=== PATIENT | female | born 1945 | race Caucasian/White ===

== ENCOUNTER 2018-04-20 19:40 | Emergency (ER) | payer MEDICARE, OTHER ==
[~2018-04-20] VITALS: Ht 162.6 cm; Wt 115.7 kg
[2018-04-20] MEDS ORDERED: INVOKANA300 MG PO (19:54)
[2018-04-20] MEDS ORDERED: PLAVIX 75 MG TA75 M1 PO (19:54)
[2018-04-20] MEDS ORDERED: ISOSORBIDE MONO60 M1 PO (19:55)
[2018-04-20] MEDS ORDERED: COZAAR 25 MG TA25 M1 PO (19:55)
[2018-04-20] MEDS ORDERED: CARVEDILOL12.5 MG PO (19:55)
[2018-04-20] MEDS ORDERED: ZETIA10 MG PO (19:55)
[2018-04-20] MEDS ORDERED: ASPIR 8181 MG PO (19:56)
[2018-04-20] MEDS ORDERED: LUMIGAN2.5 M1 OP (19:56)
[2018-04-20] MEDS ORDERED: NOVOLOG100 UNIT/1 SUBQ (19:56)
[2018-04-20] MEDS ORDERED: LANTUS100 UNIT/M SUBQ (19:56)
[2018-04-20] MEDS ORDERED: PROTONIX40 M1 PO (19:56)
[2018-04-20] MEDS ORDERED: FISH OIL 1,001000 M2 PO (19:57)
[2018-04-20] MEDS ORDERED: FEMARA2.5 MG PO (19:57)
[2018-04-20] MEDS ORDERED: VITAMIN D5000 UNIT PO (19:57)
[2018-04-20] MEDS ORDERED: CENTRUM SILVER1 EAC4 PO (19:57)
[2018-04-20] MEDS ORDERED: METFORMIN HCL1000 M1 PO (19:58)
[2018-04-20] MEDS ORDERED: COMBIGAN EYE DR10 ML (19:58)
[2018-04-20] MEDS ORDERED: BYDUREON P2 MG/0.65 (19:59)
[2018-04-20] MEDS ORDERED: HYDROCODONE-AP1 EAC6 PO (22:09)
[2018-04-20 22:30] VITALS: BP 179/90
== END 2018-04-20 22:30 | disposition home or self-care (01) ==
LOC: M.ERS 19:40
DX: S59.292A Other physeal fracture of lower end of radius, left arm, initial encounter for closed fracture (principal); S52.612A Displaced fracture of left ulna styloid process, initial encounter for closed fracture; E11.9 Type 2 diabetes mellitus without complications; I10 Essential (primary) hypertension; E78.00 Pure hypercholesterolemia, unspecified; Z90.710 Acquired absence of both cervix and uterus; Z90.11 Acquired absence of right breast and nipple; Z85.3 Personal history of malignant neoplasm of breast; Z79.4 Long term (current) use of insulin; W00.0XXA Fall on same level due to ice and snow, initial encounter; Y92.89 Other specified places as the place of occurrence of the external cause; Y93.89 Activity, other specified; Y99.8 Other external cause status

== ENCOUNTER 2018-06-18 14:58 | Inpatient (IN) | payer MEDICARE, OTHER ==
[~2018-06-18] VITALS: Ht 162.6 cm; Wt 110.2 kg
[~2018-06-18 14:58] MED LIST: ASPIR 8181 MG PO; BYDUREON P2 MG/0.65; CARVEDILOL12.5 MG PO; CENTRUM SILVER1 EAC4 PO; COMBIGAN EYE DR10 ML; COZAAR 25 MG TA25 M1 PO; FEMARA2.5 MG PO; FISH OIL 1,001000 M2 PO; HYDROCODONE-AP1 EAC6 PO; INVOKANA300 MG PO; ISOSORBIDE MONO60 M1 PO; LANTUS100 UNIT/M SUBQ; LUMIGAN2.5 M1 OP; METFORMIN HCL1000 M1 PO; NOVOLOG100 UNIT/1 SUBQ; PLAVIX 75 MG TA75 M1 PO; PROTONIX40 M1 PO; VITAMIN D5000 UNIT PO; ZETIA10 MG PO
[2018-06-18 15:08] VITALS: BP 118/84
[2018-06-18 15:33] LABS: ABSOLUTE BASOPHILS 0.1 thou/uL (0.0-0.2); ABSOLUTE EOSINOPHILS 0.1 thou/uL (0.0-0.7); ABSOLUTE LYMPHOCYTES 2.6 thou/uL (0.8-5.3); ABSOLUTE MONOCYTES 1.3 thou/uL (0.0-1.2); ABSOLUTE NEUTROPHILS 11.6 thou/uL (1.6-8.1); BASOPHILS 0.8 %; EOSINOPHILS 0.6 %; HEMATOCRIT 31.1 % (37.0-47.0); HEMOGLOBIN 10.1 gm/dL (12.0-15.0); LYMPHOCYTES 16.7 %; MCH 24.8 pg (26.0-34.0); MCHC 32.5 g/dL (28.0-37.0); MCV 76.3 fL (80.0-100.0); MONOCYTES 8.4 %; MPV 7.9 fl. (7.2-11.1); NUCLEATED RBCS 0 /100WBC; PLATELET COUNT* 365 thou/uL (150-400); POLYS 73.5 %; RBC 4.07 mil/uL (4.20-5.00); RDW-CV 15.5 % (10.5-14.5); WBC 15.8 thou/uL (4.0-11.0)
[2018-06-18 15:55] LABS: APTT 26.3 Seconds (25.0-31.3); INR 1.1; PROTIME 11.3 Seconds (9.20-11.50)
[2018-06-18 15:56] LABS: CALCIUM 8.7 mg/dL (8.5-10.1); CREATININE 2.5 mg/dL (0.6-1.3); POTASSIUM 4.9 mmol/L (3.5-5.1); TROPONIN-I LEVEL 0.11 ng/mL (<0.06)
[2018-06-18 16:00] VITALS: BP 78/21
[2018-06-18 16:03] LABS: ALBUMIN 2.5 g/dL (3.4-5.0); CK-MB MASS 0.8 ng/mL (<0.5-3.6); MAGNESIUM 2.2 mg/dL (1.8-2.4); TOTAL BILIRUBIN 1.2 mg/dL (<0.1-1.0); TOTAL PROTEIN 6.4 g/dL (6.4-8.2)
--- NOTE | 2018-06-18 17:26 | CARD ---
[address] [address] CARDIAC CATH REPORT Name: JD MACDONALD Room: [address] IN [facility]#: [id number] Admission: 06/18/18 Attend Phys: Jake Gutiérrez MD Discharge: Date of : 49 Report #: [id number] THIS REPORT FOR: //name// APPROVED REPORT Study performed: 06/18/2018 15:35:28 Patient Details Patient Status: ED Room #: The patient is a 72 year-old female Event Personnel Yasir Espinoza Teacher Adult Education, Barbara Lee RN Ware Carrier, Berta Heller RN Monitor, Alfred House (R) Scrub Procedures Performed Storm Access - R femoral vein Temporary Pacemaker Inserted Indication Abnormal ECG, Dizziness and vertigo, Syncope Risk Factors Coronary Artery DiseaseHypertension Previous Procedures/Diagnoses Previous CABG, Previous Valve Surgery Procedure Narrative The patient was brought emergently to the Cardiac Catheterization Laboratory and was prepped and draped in a sterile manner. The right femoral was infiltrated with 2% Lidocaine subcutaneous anesthesia. A 6 sheath was inserted into the right femoral vein. Coronary angiography was performed using coronary diagnostic catheters. The patient tolerated the procedure well and there were no complications associated with the procedure. There was no hematoma. Temporary Pacemaker lead inserted and Patient paced at 80 bpm at 5 mA. Patient tolerated procedure well. Fluoro Time: 1.4 minutes Dose: 105 mGy Contrast Type and Amount: No Contrast Given 0 [place] [address] CARDIAC CATH REPORT Name: JD MACDONALD Room: [address] IN [facility]#: [id number] Admission: 06/18/18 Attend Phys: Jake Gutiérrez MD Discharge: Date of : 49 Report #: [id number] 1. successful placement of a temporary pacing lead throught the right femoral vein. Recommendations permanent pacemaker <ELECTRONICALLY SIGNED> By: Yasir Espinoza MD, FACC 06/18/18 1726 [id number] Espinoza MD, FACC /INF
[2018-06-18 18:00] VITALS: BP 115/55
[2018-06-18 19:00] VITALS: BP 123/61
[2018-06-18 21:00] VITALS: BP 113/59
[2018-06-18 23:00] VITALS: BP 134/59
[2018-06-19] VITALS (11 sets, daily range): BP systolic 99–178; BP diastolic 56–109
[2018-06-19 05:26] LABS: CALCIUM 8.4 mg/dL (8.5-10.1); CREATININE 1.8 mg/dL (0.6-1.3)
[2018-06-19 05:36] LABS: POTASSIUM 3.9 mmol/L (3.5-5.1)
[2018-06-19 09:20] LABS: URINE BILIRUBIN NEGATIVE (Negative); URINE BLOOD TRACE (Negative); URINE CLARITY CLEAR; URINE COLOR YELLOW; URINE GLUCOSE-RANDOM 3+ (Negative); URINE KETONES NEGATIVE (Negative); URINE LEUKOCYTES-REFLEX NEGATIVE (Negative); URINE NITRITE-REFLEX NEGATIVE (Negative); URINE PROTEIN NEGATIVE (Negative); URINE SPECIFIC GRAVITY 1.025 (1.005-1.030); URINE UROBILINOGEN 0.2 E.U./dl (0.2-1.0)
--- NOTE | 2018-06-19 13:34 | EKG ---
[place] [address] ELECTROCARDIOGRAM REPORT Name: JD MACDONALD Room: [address] ADM IN [facility]#: [id number] Admission: 06/18/18 Attend Phys: Jake Gutiérrez MD Discharge: Date of : 49 Report #: [id number] THIS REPORT FOR: //name// [facility] ED Test Date: 2018-06-18 Test Time: 15:02:58 Pat Name: JD MACDONALD Department: Room: [facility] Gender: F Risk Management Director: MS : 1945 Requested By: Kike Luong Order Number: [id number] MD: Yasir Espinoza Measurements Intervals [place] Rate: 26 P: 23 [place]: QRS: 123 QRSD: 164 T: 18 QT: 682 QTc: 449 Interpretive Statements Complete AV block with wide QRS complex RBBB and LPFB Baseline wander in lead(s) V2 No previous ECG available for comparison Electronically Signed On 06-19-2018 13:34:03 CDT by Yasir Espinoza [email or web address] <ELECTRONICALLY SIGNED> By: Yasir Espinoza MD, [facility] 06/19/18 1334 1502 1502 Yasir Espinoza MD, [facility] /EPI
--- NOTE | 2018-06-19 17:27 | CON ---
[address] [address] CONSULTATION Name: JD MACDONALD Room: [address] ADM IN [facility].#: [id number] Admission: 06/18/18 Attend Phys: Jake Gutiérrez MD Discharge: Date of : 49 Report #: [id number] THIS REPORT FOR: //name// CC: Eunice Gutiérrez DATE OF SERVICE: 06/18/2018 CARDIOLOGY CONSULTATION HISTORY OF PRESENT ILLNESS: The patient is a 72-year-old white female who I was asked to see in the Emergency Room today after she had evidence of complete heart block. The history is obtained from the patient as well as her . No old records available. The patient has an extensive past medical history. She has had several stents in the past at both [facility] and [facility]. She apparently had a total of 5 stents in the past. She has a long history of a heart murmur. Recently, she has been more short of breath. She eventually underwent 2-vessel bypass surgery and aortic valve replacement using tissue valve at [facility] a week ago. She apparently tolerated the surgery well. She was just discharged yesterday. Last night about 11:30 at night, she felt lightheaded and fell off the bed on the floor. She had a brief loss of consciousness. Today, she felt weak, short of breath and nauseated. She called an ambulance. She was noted to be in complete heart block. Cardiology consultation requested. She denies a history of an irregular heartbeat. PAST MEDICAL HISTORY: She has had a hysterectomy. She has a history of breast cancer with previous right lumpectomy followed by radiation therapy. She has hypertension and diabetes. MEDICATIONS: Consist of Invokana, losartan, carvedilol, Zetia, insulin, aspirin, metformin. ALLERGIES: She has no known drug allergies. FAMILY HISTORY: Her sister had coronary artery bypass surgery. SOCIAL HISTORY: She is . She and her live in [place]. No smoking or alcohol abuse. REVIEW OF SYSTEMS: She is overweight, being 5 feet 4 inches, 260 pounds. She has no history of stroke, no history of peptic ulcer disease, liver disease, kidney disease. She fell and broke her hand last year and has a splint in place. She has sleep apnea, uses CPAP. She has had skin [place] [address] CONSULTATION Name: JD MACDONALD Room: [address]#: [id number] Admission: 06/18/18 Attend Phys: Jake Gutiérrez MD Discharge: Date of : 49 Report #: [id number] PHYSICAL EXAMINATION: GENERAL: Revealed a large, elderly female lying in bed. She appeared in no acute distress. VITAL SIGNS: Show blood pressure 120/80, pulse 30, she is afebrile. HEENT: She was anicteric, conjunctivae pink. Mucous membranes moist. NECK: Veins were difficult to assess due to obesity. No carotid bruits. CHEST: Clear to auscultation. CARDIAC: Irregular bradycardia. ABDOMEN: Obese. EXTREMITIES: Had trace edema. SKIN: Cool and dry. IMAGING: ECG shows a sinus rhythm with AV dissociation due to complete heart block with a wide QRS escape rhythm. Her workup in the Emergency Room today, she had a portable chest x-ray that shows normal heart size, clear lung barnhart, some atelectasis. LABORATORY WORK: Significant for white blood cell count 15.8, hemoglobin 10.1. IMPRESSION AND RECOMMENDATIONS: 1. Complete heart block. I would discontinue Coreg. Check thyroid function studies. Recommend temporary pacemaker. If complete heart block persists, I would recommend permanent pacemaker. 2. Recent coronary artery bypass surgery. I would continue aspirin a day. 3. Recent aortic valve replacement using tissue valve. Valve appears to be functioning normally. 4. Morbid obesity. 5. Diabetes. 6. Hypertension. The patient is on an ARB and beta-pineda. 7. Hyperlipidemia. The patient is on Zetia. 8. Sleep apnea. The patient uses continuous positive airway pressure. 9. Breast cancer. <ELECTRONICALLY SIGNED> By: Yasir Espinoza MD, FACC 06/19/18 1727 1550 0437Davialbert Espinoza MD, FACC /nt
--- NOTE | 2018-06-19 18:08 | CARD ---
[address] [address] CARDIAC CATH REPORT Name: TORRESJD Alvaro Room: [address] IN [facility]#: [id number] Admission: 06/18/18 Attend Phys: Jkae Gutiérrez MD Discharge: Date of : 49 Report #: [id number] THIS REPORT FOR: //name// APPROVED REPORT Study performed: 06/19/2018 13:29:34 Patient Status: In-Patient Room #: Event Personnel: Yasir Espinoza Steam And Power Superintendent, Berta Heller RN Pneumatic Tube Operator, Alfred House (R) Monitor, Jake Chávez TRANSPORTATION DISPATCH MANAGER Scrub Exam: Insertion of Dual Chamber Permanent Pacemaker Indications: Complete Heart Block The patient is a 72 year-old female with a history of syncope and complete heart block. Conscious Sedation Start time: 14:29 End Time: 16:44 Fentanyl 50 mcg Versed 2 mg Implanted Devices: permanent dual chamber mri compatible biotronic pacemaker Explanted Devices: temporary pacing lead from the right femoral vein Procedure The patient underwent informed consent. We discussed the details of the procedure including the risks, which include, but not limited to bleeding, infection, vascular damage, cardiac perforation, and pneumothorax. She understood these risks and was willing to proceed. As such, she was brought to the EP/Cardiac Catheterization laboratory in a fasting and sedated state and prepped and draped in a sterile fashion, received IV antibiotics prior to initiation of the procedure and a venogram was performed showing patency of the left axillary vein. The patient underwent conscious sedation, with no related complications. The patient was brought to the EP/Cardiac Catheterization laboratory and the left chest and shoulder were prepped and draped in a sterile manner. During this case, Fluoroscopy and visipaque 10cc were used for imaging. The left subclavian region was infiltrated with 2% Lidocaine subcutaneous anesthesia. A transverse [place] [address] CARDIAC CATH REPORT Name: JD MACDONALD Room: [address] IN [facility].#: [id number] Admission: 06/18/18 Attend Phys: Jake Gutiérrez MD Discharge: Date of : 49 Report #: [id number] upper chest cavity. The subcutaneous pocket was formed via blunt dissection. Percutaneous venous access was achieved and an introducer sheath was inserted into the left Subclavian vein. Sheaths were positions using the modified Seldinger technique Through the introducer sheaths the atrial and ventricular lead wires were positioned in the right atrial appendage and right ventricular apex respectively. Utilizing fluoroscopic guidance, the atrial and ventricular lead wires were advanced over the wires and positioned in the right atria and right ventricle respectively. Capturing and sensing thresholds were verified. After pacemaker generator and lead insertion, the temporary pacing lead was removed under fluoroscopy and the sheath was removed from the right femoral vein and hemostasis achieved by manual pressure. Electrode Parameters P Wave: 2.3 mv R Wave: 4.2 mv Atrial Threshold: 1.2 v @ .4 ms Ventricular Threshold: 0.6 v @ 0.4 mv Atrial Resistance: 487 ohm Ventricular Resistance: 546 ohm Dual Chamber The atrial and ventricular leads were then secured using 0 silk sutures. The subcutaneous pocket was irrigated with ancef antibiotic solution.The atrial and ventricular leads were attached to the appropriate receptacles on the pulse generator and set screws firmly tightened to insure adequate contact and stability. The lead and pulse generator were placed into the subcutaneous pocket. Sharp and sponge counts were confirmed to be correct. At this time the pocket was closed subcutaneously with a 4.0 Vicryl and the skin was closed with a 4.0 Vicryl. The operative site was dressed in sterile fashion with skin affix and the patient was transferred to the floor in stable condition. Complications The patient tolerated the procedure well and there were no complications associated with the procedure. Findings Estimated Blood Loss: 10 [place] [address] CARDIAC CATH REPORT Name: JD MACDONALD Room: [address] IN [facility]#: [id number] Admission: 06/18/18 Attend Phys: Jake Gutiérrez MD Discharge: Date of : 49 Report #: [id number] Conclusion successful placement of a dual chamber pacemaker generator and leads <ELECTRONICALLY SIGNED> By: Yasir Espinoza MD, FACC 06/19/18 180 07 07Danilesh Espinoza MD, [facility] /INF
[2018-06-20] VITALS (8 sets, daily range): BP systolic 110–145; BP diastolic 35–77
[2018-06-20 04:55] LABS: HEMATOCRIT 28.5 % (37.0-47.0); HEMOGLOBIN 9.4 gm/dL (12.0-15.0); MCH 24.6 pg (26.0-34.0); MCV 74.6 fL (80.0-100.0); RBC 3.81 mil/uL (4.20-5.00); RDW-CV 15.3 % (10.5-14.5); WBC 11.4 thou/uL (4.0-11.0)
[2018-06-20 05:09] LABS: CALCIUM 8.2 mg/dL (8.5-10.1); CREATININE 1.4 mg/dL (0.6-1.3); MAGNESIUM 1.8 mg/dL (1.8-2.4); POTASSIUM 4.2 mmol/L (3.5-5.1)
[2018-06-20] MEDS ORDERED: COLACE100 MG PO (07:47)
--- NOTE | 2018-06-20 14:20 | EKG ---
[place] [address] ELECTROCARDIOGRAM REPORT Name: JD MACDONALD Room: [address] ADM IN .R.#: [id number] Admission: 06/18/18 Attend Phys: Jake Gutiérrez MD Discharge: Date of : 47 Report #: [id number] THIS REPORT FOR: //name// [facility] Test Date: 2018-06-20 Test Time: 09:51:56 Pat Name: JD MACDONALD Department: Room: [address] Gender: F Loading Unit Operator Crimping: : 1945 Requested By: Yasir Espinoza Order Number: [id number] Curly MD: Juanjose Cabral Measurements Intervals [place] Rate: 110 P: 0 [place]: 117 QRS: -56 QRSD: 166 T: 115 QT: 399 QTc: 540 Interpretive Statements Ventricular-paced rhythm No further analysis attempted due to paced rhythm Compared to ECG 06/18/2018 15:02:58 AV block, complete (third-degree) no longer present Left posterior fascicular block no longer present Right bundle-branch block no longer present Electronically Signed On 06-20-2018 14:20:26 CDT by Juanjose Cabral [email or web address] <ELECTRONICALLY SIGNED> By: Juanjose Cabral MD, [facility] 06/20/18 1420 0951 0951 Juanjose Cabral MD, [facility] /EPI
== END 2018-06-20 14:45 | disposition home health service (06) | DRG 242 ==
LOC: M.ERS 14:58 → M.ICU 15:54 → M.TBA-ER 15:54 → M.ICU 16:57
PROVIDERS: Emergency Medicine Emergency Medical Services; Internal Medicine Cardiovascular Disease; ADMIT Internal Medicine
PROC: 5A1223Z Performance of Cardiac Pacing, Continuous (ICD-10-PCS; principal; 2018-06-18)
PROC: 02H63JZ Insertion of Pacemaker Lead into Right Atrium, Percutaneous Approach (ICD-10-PCS; 2018-06-19)
PROC: 02HK3JZ Insertion of Pacemaker Lead into Right Ventricle, Percutaneous Approach (ICD-10-PCS; 2018-06-19)
PROC: 0JH606Z Insertion of Pacemaker, Dual Chamber into Chest Subcutaneous Tissue and Fascia, Open Approach (ICD-10-PCS; 2018-06-19)
DX: I44.2 Atrioventricular block, complete (principal); R57.0 Cardiogenic shock; N17.0 Acute kidney failure with tubular necrosis; Z68.41 Body mass index [BMI] 40.0-44.9, adult; E78.5 Hyperlipidemia, unspecified; E11.9 Type 2 diabetes mellitus without complications; I10 Essential (primary) hypertension; E78.00 Pure hypercholesterolemia, unspecified; K21.9 Gastro-esophageal reflux disease without esophagitis; E66.01 Morbid (severe) obesity due to excess calories; G47.33 Obstructive sleep apnea (adult) (pediatric); D64.9 Anemia, unspecified; S80.11XA Contusion of right lower leg, initial encounter; X58.XXXA Exposure to other specified factors, initial encounter; Y93.89 Activity, other specified; Y92.89 Other specified places as the place of occurrence of the external cause; Y99.8 Other external cause status; Z95.2 Presence of prosthetic heart valve; Z92.3 Personal history of irradiation; Z85.3 Personal history of malignant neoplasm of breast; Z95.1 Presence of aortocoronary bypass graft; Z90.710 Acquired absence of both cervix and uterus; Z79.02 Long term (current) use of antithrombotics/antiplatelets; Z79.4 Long term (current) use of insulin; Z79.82 Long term (current) use of aspirin; Z79.899 Other long term (current) drug therapy; Z82.49 Family history of ischemic heart disease and other diseases of the circulatory system

== ENCOUNTER 2018-06-25 21:34 | Inpatient (IN) | payer MEDICARE, OTHER ==
[~2018-06-25] VITALS: Ht 162.6 cm; Wt 104.8 kg
[~2018-06-25 21:34] MED LIST changes: -BYDUREON P2 MG/0.65; +BYDUREON P2 MG/0.65 SUBQ; +COLACE100 MG PO; -COMBIGAN EYE DR10 ML; +COMBIGAN EYE DR10 ML OPHTHALMIC
[2018-06-25] MEDS ORDERED: COREG (21:45)
[2018-06-25 21:47] VITALS: BP 87/55
[2018-06-25 22:39] LABS: ABSOLUTE BASOPHILS 0.1 thou/uL (0.0-0.2); ABSOLUTE EOSINOPHILS 0.2 thou/uL (0.0-0.7); ABSOLUTE LYMPHOCYTES 1.7 thou/uL (0.8-5.3); ABSOLUTE MONOCYTES 0.7 thou/uL (0.0-1.2); ABSOLUTE NEUTROPHILS 8.1 thou/uL (1.6-8.1); BASOPHILS 1.3 %; EOSINOPHILS 2.2 %; HEMATOCRIT 28.8 % (37.0-47.0); HEMOGLOBIN 9.5 gm/dL (12.0-15.0); LYMPHOCYTES 15.5 %; MCH 24.7 pg (26.0-34.0); MCV 74.7 fL (80.0-100.0); MONOCYTES 6.5 %; MPV 6.9 fl. (7.2-11.1); NUCLEATED RBCS 0 /100WBC; PLATELET COUNT* 387 thou/uL (150-400); POLYS 74.5 %; RBC 3.85 mil/uL (4.20-5.00); RDW-CV 15.7 % (10.5-14.5); WBC 10.8 thou/uL (4.0-11.0)
[2018-06-25 22:44] LABS: INR 1.1; PROTIME 10.8 Seconds (9.20-11.50)
[2018-06-25 22:58] LABS: ALBUMIN 2.6 g/dL (3.4-5.0); ALKALINE PHOSPHATASE 62 U/L (46-116); ANION GAP 10 mmol/L (7-16); BUN 22 mg/dL (7-18); CALCIUM 9.2 mg/dL (8.5-10.1); CHLORIDE 103 mmol/L (98-107); CO2 24 mmol/L (21-32); CREATININE 1.4 mg/dL (0.6-1.3); GLUCOSE 207 mg/dL (70-99); LIPASE 866 U/L (73-393); NT-PRO BRAIN NAT PEPTIDE 1811 pg/mL (<300); POTASSIUM 4.2 mmol/L (3.5-5.1); SGOT 19 U/L (15-37); SGPT 29 U/L (30-65); SODIUM 137 mmol/L (136-145); TOTAL BILIRUBIN 0.9 mg/dL (<0.1-1.0); TOTAL PROTEIN 6.3 g/dL (6.4-8.2); TROPONIN-I LEVEL <0.06 ng/mL (<0.06)
[2018-06-26] VITALS (11 sets, daily range): BP systolic 102–153; BP diastolic 38–80
--- NOTE | 2018-06-26 11:30 | EKG ---
[place] [address] ELECTROCARDIOGRAM REPORT Name: JD MACDONALD Room: [address] ADM IN [facility]#: [id number] Admission: 06/25/18 Attend Phys: Greg Sanford MD Discharge: Date of : 49 Report #: [id number] THIS REPORT FOR: //name// [facility] ED Test Date: 2018-06-25 Test Time: 21:46:47 Pat Name: JD MACDONALD Department: Room: [facility] Gender: F Starch Treating Assistant: GL : 1945 Requested By: Asia Ambriz Order Number: [id number] MD: Curt Wilkins Measurements Intervals [place] Rate: 108 P: 97 [place]: 163 QRS: -6 QRSD: 104 T: 146 QT: 346 QTc: 464 Interpretive Statements Sinus tachycardia Atrial premature complexes Anterior infarct, old Abnormal T, consider ischemia, diffuse leads Compared to ECG 06/20/2018 09:51:56 Atrial premature complex(es) now present Myocardial infarct finding now present T-wave abnormality now present Possible ischemia now present Ventricular-paced complex(es) or rhythm no longer present Electronically Signed On 06-26-2018 11:30:30 CDT by Curt Wilkins [email or web address] <ELECTRONICALLY SIGNED> By: Curt Wilkins MD, [facility] 06/26/18 1130 45 2146 Curt Wilkins MD, [facility] /EPI
--- NOTE | 2018-06-26 11:30 | EKG ---
[place] [address] ELECTROCARDIOGRAM REPORT Name: JD MACDONALD Room: [address] ADM IN [facility].#: [id number] Admission: 06/25/18 Attend Phys: Greg Sanford MD Discharge: Date of : 49 Report #: [id number] THIS REPORT FOR: //name// [facility] ED Test Date: 2018-06-25 Test Time: 23:14:13 Pat Name: JD MACDONALD Department: Room: [address] Gender: F Hotel Front Office Manager: : 1945 Requested By: Asia Ambriz Order Number: [id number] Reading MD: Curt Wilkins Measurements Intervals [place] Rate: 107 P: [place]: QRS: -25 QRSD: 96 T: 107 QT: 323 QTc: 431 Interpretive Statements Atrial flutter with predominant 2:1 AV block Borderline left axis deviation Anteroseptal infarct, age indeterminate Compared to ECG 06/20/2018 09:51:56 2:1 AV block now present Myocardial infarct finding now present Ventricular-paced complex(es) or rhythm no longer present Electronically Signed On 06-26-2018 11:30:35 CDT by Curt Wilkins [email or web address] <ELECTRONICALLY SIGNED> By: Curt Wilkins MD, FAC 06/26/18 1130 2314 2314 Curt Wilkins MD, FAC /EPI
--- NOTE | 2018-06-26 11:31 | EKG ---
[place] [address] ELECTROCARDIOGRAM REPORT Name: JD MACDONALD Room: [address] ADM IN ..#: [id number] Admission: 06/25/18 Attend Phys: Greg Sanford MD Discharge: Date of : 49 Report #: [id number] THIS REPORT FOR: //name// [facility] Test Date: 2018-06-26 Test Time: 10:41:59 Pat Name: JD MACDONALD Department: Room: [address] Gender: F Price Accuracy Supervisor: : 1945 Requested By: Curt Wilkins Order Number: [id number] Reading MD: Curt Wilkins Measurements Intervals [place] Rate: 104 P: 28 [place]: 115 QRS: -23 QRSD: 102 T: 105 QT: 363 QTc: 478 Interpretive Statements aflutter No further rhythm analysis attempted due to paced rhythm Probable left atrial enlargement Borderline left axis deviation Nonspecific repol abnormality, lateral leads ST elevation, consider inferior injury Compared to ECG 06/20/2018 09:51:56 Early repolarization now present ST (T wave) deviation now present Myocardial infarct finding now present Electronically Signed On 06-26-2018 11:31:28 CDT by Curt Wilkins [email or web address] <ELECTRONICALLY SIGNED> By: Curt Wilkins MD, FAC 06/26/18 1131 1041 1041 Curt Wilkins MD, FAC /EPI
--- NOTE | 2018-06-26 16:17 | TEE ---
[place] [address] TRANSESOPHAGEAL ECHOCARDIOGRAM Name: JD MACDONALD Room: [address] IN [facility]#: [id number] Admission: 06/25/18 Attend Phys: Greg Sanford, Discharge: Date of : 49 Date of Service: 06/26/18 1617 Report #: [id number] THIS REPORT FOR: //name// APPROVED REPORT Study performed: 06/26/2018 15:19:21 EXAM: Transesophageal Echocardiogram Patient Location: In-Patient Room #: [facility] Status: routine BSA: 2.11 HR: 86 bpm BP: 102/63 mmHg Rhythm: NSR Other Information Study Quality: Good Indications Atrial Fibrillation Echo Enhancing Agent Indication: Rule out Shunt Agent(s) / Amount(s) Used: Agitated Saline 10 cc Procedure After obtaining informed consent, patient underwent transesophageal echo in the [employer] Machine Operator Holding. Type of Sedation : Conscious Sedation Sedation was administered by Tamiko Tang RN. Sedation start time: 1530 Case end Time: 1550 Sedation was achieved intravenously with: Versed (5) Fentanyl (50) Transesophageal probe was inserted and advanced into esophagus without difficulty by Curt Wilkins MD, FACC. Echo enhancement indication: R/O Septal defect. Echo enhancement agent administered: Agitated Saline The GILBERT was performed without complications. Synchronized Cardioversion acheived with 150 Joules after 1 attempt(s). Rhythm following Synchronized Cardioversion: Normal Sinus Rhythm Throughout the procedure, the blood pressure, pulse oximetry, cardiac rhythm, and rate were monitored. The patient tolerated the procedure without adverse effects. Recovery [address] [address] TRANSESOPHAGEAL ECHOCARDIOGRAM Name: JD MACDONALD Alvaro Room: [address] IN [facility]#: [id number] Admission: 06/25/18 Attend Phys: Greg Sanford, Discharge: Date of : 49 Date of Service: 06/26/18 1617 Report #: [id number] from conscious sedation was uneventful and vital signs were stable. Left Ventricle The left ventricle is normal size. There is normal LV segmental wall motion. There is normal left ventricular wall thickness. Left ventricular systolic function is normal. The left ventricular ejection fraction is within the normal range. No left ventricle thrombus noted on this study. LVEF is 65-70%. Right Ventricle The right ventricle is normal size. The right ventricular systolic function is normal. Atria No thrombus is visualized in the left atrium or appendage. Interatrial septum is intact without evidence of ASD or PFO. The right atrium size is normal. Aortic Valve Bioprosthetic aortic valve is present. No aortic regurgitation is present. There is no aortic valvular stenosis. Mitral Valve The mitral valve is normal in structure. Trace mitral regurgitation. No evidence of mitral valve stenosis. Tricuspid Valve The tricuspid valve is normal in structure. Trace tricuspid regurgitation. Pulmonic Valve The pulmonary valve is normal in structure. There is no pulmonic valvular regurgitation. Great Vessels The aortic root is normal in size. Pericardium There is no pericardial effusion. <Conclusion> LVEF is 65-70%. There is normal LV segmental wall motion. Bioprosthetic aortic valve is present. There is no [place] [address] TRANSESOPHAGEAL ECHOCARDIOGRAM Name: JD MACDONALD Room: [address] IN .R.#: [id number] Admission: 06/25/18 Attend Phys: Greg Sanford, Discharge: Date of : 49 Date of Service: 06/26/181616 Report #: [id number] No aortic regurgitation is present. Trace mitral regurgitation. Interatrial septum is intact without evidence of ASD or PFO. No thrombus is visualized in the left atrium or appendage. <ELECTRONICALLY SIGNED> By: Curt Wilkins MD, [facility] 06/26/181616 16 16 Curt Wilkins MD, FACC /INF
[2018-06-27] VITALS: BP 101/59
[2018-06-27 04:00] VITALS: BP 123/59
[2018-06-27 08:00] VITALS: BP 99/57
[2018-06-27 13:00] VITALS: BP 109/59
--- NOTE | 2018-06-27 14:33 | EKG ---
[place] [address] ELECTROCARDIOGRAM REPORT Name: JD MACDONALD Room: [address] ADM IN .R.#: [id number] Admission: 06/25/18 Attend Phys: Greg Sanford MD Discharge: Date of : 49 Report #: [id number] THIS REPORT FOR: //name// [facility] Test Date: 2018-06-26 Test Time: 15:51:13 Pat Name: JD MACDONALD Department: Room: [address] Gender: F Dry Folder Cloth: BS : 1945 Requested By: Curt Wilkins Order Number: [id number] Reading MD: Juanjose Cabral Measurements Intervals [place] Rate: 85 P: 47 [place]: 159 QRS: -12 QRSD: 98 T: 84 QT: 357 QTc: 425 Interpretive Statements Sinus rhythm Anteroseptal infarct, age indeterminate Baseline wander in lead(s) III,V1 Electronically Signed On 06-27-2018 14:33:07 CDT by Juanjose Cabral [email or web address] <ELECTRONICALLY SIGNED> By: Juanjose Cabral MD, [facility] 06/27/18 1433 1551 1551 Juanjose Cabral MD, FACC /EPI
--- NOTE | 2018-06-27 14:38 | EKG ---
[place] [address] ELECTROCARDIOGRAM REPORT Name: JD MACDONALD Room: [address] ADM IN ..#: [id number] Admission: 06/25/18 Attend Phys: Greg Sanford MD Discharge: Date of : 49 Report #: [id number] THIS REPORT FOR: //name// [facility] Test Date: 2018-06-27 Test Time: 05:15:55 Pat Name: JD MACDONALD Department: Room: [address] Gender: F Associate Professor Of Music: MINI : 1945 Requested By: Greg Sanford Order Number: [id number] Reading MD: Juanjose Cabral Measurements Intervals [place] Rate: 101 P: -30 PA: 13 QRS: -30 QRSD: 103 T: 111 QT: 363 QTc: 471 Interpretive Statements Atrial-sensed ventricular-paced complexes No further analysis attempted due to paced rhythm Compared to ECG 06/26/2018 10:41:59 Early repolarization no longer present ST (T wave) deviation no longer present Myocardial infarct finding no longer present Electronically Signed On 06-27-2018 14:38:00 CDT by Juanjose Cabral [email or web address] <ELECTRONICALLY SIGNED> By: Juanjose Cabral MD, [facility] 06/27/18 1438 0515 0515 Juanjose Cabral MD, [facility] /EPI
[2018-06-27 16:00] VITALS: BP 117/70
[2018-06-27 20:20] VITALS: BP 102/72
[2018-06-28] VITALS (9 sets, daily range): BP systolic 95–159; BP diastolic 37–99
[2018-06-28 14:36] LABS: HEMATOCRIT 29.4 % (37.0-47.0); HEMOGLOBIN 9.7 gm/dL (12.0-15.0); MCH 24.7 pg (26.0-34.0); MCV 74.8 fL (80.0-100.0); MPV 6.8 fl. (7.2-11.1); RBC 3.93 mil/uL (4.20-5.00); RDW-CV 15.9 % (10.5-14.5); WBC 9.2 thou/uL (4.0-11.0)
[2018-06-28 14:47] LABS: ALBUMIN 2.4 g/dL (3.4-5.0); CALCIUM 8.7 mg/dL (8.5-10.1); CREATININE 1.3 mg/dL (0.6-1.3); POTASSIUM 3.8 mmol/L (3.5-5.1); TOTAL BILIRUBIN 0.6 mg/dL (<0.1-1.0); TOTAL PROTEIN 6.2 g/dL (6.4-8.2)
--- NOTE | 2018-06-28 17:29 | 2DMMODE ---
[place] [address] 2 D/M-MODE ECHOCARDIOGRAM Name: JD MACDONALD Room: [address] IN [facility]#: [id number] Admission: 06/25/18 Attend Phys: Greg Sanford, Discharge: Date of : 49 Date of Service: 06/28/18 1729 Report #: [id number] THIS REPORT FOR: //name// APPROVED REPORT Study performed: 06/28/2018 14:40:52 EXAM: Comprehensive 2D, Doppler, and color-flow Echocardiogram Patient Location: In-Patient Room #: [facility] Status: routine BSA: 2.08 HR: 83 bpm BP: 132/64 mmHg Rhythm: NSR Other Information Study Quality: Good Indications Hypotension Arrhythmia 2D Dimensions IVSd: 9.78 (7-11mm) LVOT Diam: 20.02 (18-24mm) LVDd: 46.47 mm PWd: 11.76 (7-11mm) Ascending Ao: 23.94 (22-36mm) LVDs: 27.32 (25-40mm) Aortic Root: 24.09 mm Volumes Left Atrial Volume (Systole) LA ESV Index: 33.00 mL/m2 Aortic Valve AoV Peak Freddy.: 1.29 m/s AO Peak Gr.: 6.67 mmHg LVOT Max P.44 mmHg AO Mean Gr.: 3.61 mmHg LVOT Mean P.01 mmHg LVOT Max V: 1.17 m/s AO V2 VTI: 24.65 cm LVOT Mean V: 0.82 m/s BOLA (VTI): 3.00 cm2 LVOT V1 VTI: 23.49 cm Mitral Valve E/A Ratio: 1.21 MV Decel. Time: 215.48 [place] [address] 2 D/M-MODE ECHOCARDIOGRAM Name: JD MACDONALD Room: [address] [place] ..#: [id number] Admission: 06/25/18 Attend Phys: Greg Sanford, Discharge: Date of : 49 Date of Service: 06/28/18 1729 Report #: [id number] MV E Max Freddy.: 1.04 m/s MV PHT: 62.49 ms MVA (PHT): 3.52 cm2 TDI E/Lateral E': 10.40 E/Medial E': 13.00 Medial E' Freddy.: 0.08 m/s Lateral E' Freddy.: 0.10 m/s Pulmonary Valve PV Peak Freddy.: 1.12 m/s PV Peak Gr.: 5.00 mmHg Tricuspid Valve RAP Estimate: 5.00 mmHg TR Peak Gr.: 30.38 mmHg RVSP: 35.00 mmHg PA Pressure: 35.00 mmHg Left Ventricle The left ventricle is normal size. There is normal LV segmental wall motion. There is normal left ventricular wall thickness. Left ventricular systolic function is normal. LVEF is 55-60%. Transmitral Doppler flow pattern suggests impaired LV relaxation. Right Ventricle The right ventricle is normal size. The right ventricular systolic function is normal. Pacemaker lead is present in the right ventricle. Atria The left atrium size is normal. The right atrium size is normal. Aortic Valve Bioprosthetic aortic valve is present. No aortic regurgitation is present. There is no aortic valvular stenosis. Mitral Valve The mitral valve is normal in structure. Trace mitral regurgitation. No evidence of mitral valve stenosis. Tricuspid Valve The tricuspid valve is normal in structure. Mild tricuspid regurgitation. Mild pulmonary hypertension. Pulmonic Valve The pulmonary valve is normal in structure. Trace [place] [address] 2 D/M-MODE ECHOCARDIOGRAM Name: JD MACDONALD Room: [address]#: [id number] Admission: 06/25/18 Attend Phys: Greg Sanford, Discharge: Date of : 49 Date of Service: 06/28/18 1729 Report #: [id number] Great Vessels The aortic root is normal in size. IVC is not well visualized. Pericardium There is no pericardial effusion. <Conclusion> The left ventricle is normal size. There is normal left ventricular wall thickness. Left ventricular systolic function is normal. LVEF is 55-60%. Transmitral Doppler flow pattern suggests impaired LV relaxation. Pacemaker lead is present in the right ventricle. Bioprosthetic aortic valve is present. No aortic regurgitation is present. There is no aortic valvular stenosis. Trace mitral regurgitation. Mild tricuspid regurgitation. Mild pulmonary hypertension. <ELECTRONICALLY SIGNED> By: Aaron Hernandez MD, [facility] 06/28/181728 28 28 Aaron Hernandez MD, FACC /INF
[2018-06-29 00:34] VITALS: BP 153/82
[2018-06-29 04:11] VITALS: BP 158/68
[2018-06-29 11:32] VITALS: BP 114/62
[2018-06-29 15:40] VITALS: BP 146/84
--- NOTE | 2018-06-29 16:30 | CARD ---
[address] [address] CARDIAC CATH REPORT Name: TORRESJD Alvaro Room: [address] IN .R.#: [id number] Admission: 06/25/18 Attend Phys: Greg Sanford MD Discharge: Date of : 49 Report #: [id number] THIS REPORT FOR: //name// CC: Greg Oliverew Juanjose DATE OF SERVICE: 06/26/2018 PROCEDURES PERFORMED: GILBERT-guided cardioversion. INDICATIONS: Atrial flutter. The patient is status post CABG and then subsequent to this developed a high grade AV block requiring permanent pacemaker and then she presented with tachycardia and atrial flutter with variable block. CONSENT: The risks and benefits of the procedure described to the patient in lay terms. The patient elects to proceed. After informed consent, the patient was prepped and draped in the usual sterile manner. Procedure was performed in the cardiac catheterization lab holding area. Please see separate GILBERT report. After reassessing level of sedation, the patient was monitored with usual hemodynamic monitoring of heart rate, oxygenation, blood pressure and respiratory rate. The patient was then successfully cardioverted with 150 joules, biphasic from atrial flutter to sinus rhythm in the 80s. IMPRESSION: 1. Atrial flutter. 2. Successful cardioversion. <ELECTRONICALLY SIGNED> By: Aaron Hernandez MD, [facility] 06/29/18 1630 1616 [id number] Wilkins MD, FACC /nt
--- NOTE | 2018-06-29 16:30 | CON ---
[address] [address] CONSULTATION Name: JD MACDONALD Room: [address] IN M.R.#: [id number] Admission: 06/25/18 Attend Phys: Greg Sanford MD Discharge: Date of : 49 Report #: [id number] THIS REPORT FOR: //name// CC: Greg Sow DATE OF SERVICE: 06/26/2018 CHIEF COMPLAINT: Weakness, shortness of breath and fatigue. HISTORY OF PRESENT ILLNESS: The patient is a 72-year-old female who had a recent 2-vessel CABG and aortic valve replacement with a tissue prosthesis at [facility]. She then presented here in heart block and required a permanent pacemaker and she presents with only few days since her discharge, feeling well and then she became short of breath, dizzy, lightheaded and was found to be in atrial flutter with variable block. She denies palpitations or heart racing. She is without chest pressure or tightness. She has a normal troponin level, mildly increased congestion on her chest x-ray. She denies syncope or presyncope. She denies neuro symptoms of slurred speech, numbness, weakness or visual change. She is currently not anticoagulated except for aspirin apparently. PAST MEDICAL HISTORY: She has a known history of multivessel coronary artery disease and had prior PCI before her bypass and AVR. This was predominantly treated at [facility] and she has been followed by the homicide squad lieutenant there until her open heart surgery. She has a history of hysterectomy. She has a history of prior breast cancer status post radiation therapy and lumpectomy. She has hypertension and diabetes. HOME MEDICATIONS: Include the following: Hydrocodone, Zetia, Protonix, baby aspirin, vitamin D, insulin, Imdur 60 mg daily, losartan 25 mg daily, carvedilol 12.5 mg p.o. b.i.d. SOCIAL HISTORY: She is a nonsmoker. REVIEW OF SYSTEMS: GASTROINTESTINAL: No fevers or chills. CARDIOVASCULAR: No chest pain. Positive dyspnea, positive palpitations. NEUROLOGIC: Denies headaches or blurry vision. Positive dizziness. Denies visual changes. GASTROINTESTINAL: No hematemesis or melena. GENITOURINARY: [place] [address] CONSULTATION Name: TORRESJD Alvaro Room: [address]#: [id number] Admission: 06/25/18 Attend Phys: Greg Sanford MD Discharge: Date of : 49 Report #: [id number] MUSCULOSKELETAL: No recent falls. SKIN: No edema, no drainage at the site of her bypass site. ALLERGIES: As noted above. PHYSICAL EXAMINATION: VITAL SIGNS: Blood pressure is stable at 108/55, pulse is 87, temperature is 36.9. GENERAL: Pleasant elderly female. She is alert, oriented, no apparent distress. HEENT: Eyes: EOMs intact. No facial asymmetry. NECK: Supple. No jugular venous distention. Upstrokes are normal. CARDIOVASCULAR: Regular, I cannot hear a murmur. LUNGS: Clear to auscultation. ABDOMEN: Soft, nontender. EXTREMITIES: No peripheral edema. NEUROLOGIC: No focal deficits. SKIN: Warm and dry. LABORATORY DATA: Electrocardiogram demonstrates an atrial flutter with variable block with a heart rate of 108. She has an IVCD and poor R-wave progression. X-ray, mild chronic lung changes. No pneumonia. Hemoglobin is 9.5, white blood count is 10.8, platelet counts 287,000. INR is 1.1. Troponin I is 0.06 x 2 sets. IMPRESSION: 1. Atrial flutter. I think this is causing some mild heart failure and symptoms of palpitations, after discussion with the patient, I think she would benefit from a cardioversion, but she would first need transesophageal echocardiogram. I think she is a good anticoagulation candidate. We will transition her to Eliquis. 2. Status post permanent pacemaker. 3. Complete heart block. 4. Status post 2-vessel CABG. At this point in time, her LV ejection fraction is not known. We will try to request records from [facility], but given her mild creatinine increase and cardiovascular history, I think she would benefit from amiodarone, which at some point can be transitioned to a less potent antiarrhythmic therapy to further away, she gets from her atrial fibrillation, which I think is essentially a postoperative related dysrhythmia. At this point, this close to her discharge from the hospital from her surgery. <ELECTRONICALLY SIGNED> By: Aaron Hernandez MD, FACC 06/29/18 1630 0934 Curt Wilkins MD, FACC /nt
[2018-06-29 20:00] VITALS: BP 147/72
[2018-06-30] VITALS: BP 132/88
[2018-06-30 04:00] VITALS: BP 143/93
[2018-06-30 08:27] LABS: URINE BILIRUBIN NEGATIVE (Negative); URINE BLOOD NEGATIVE (Negative); URINE CLARITY CLEAR; URINE COLOR YELLOW; URINE GLUCOSE-RANDOM TRACE (Negative); URINE KETONES NEGATIVE (Negative); URINE LEUKOCYTES-REFLEX NEGATIVE (Negative); URINE NITRITE-REFLEX NEGATIVE (Negative); URINE PROTEIN NEGATIVE (Negative); URINE SPECIFIC GRAVITY <= 1.005 (1.005-1.030); URINE UROBILINOGEN 0.2 E.U./dl (0.2-1.0)
[2018-06-30] MEDS ORDERED: NYSTATIN15 G3 TOP (11:48)
[2018-06-30] MEDS ORDERED: FLUCONAZOLE 10100 MG PO (11:48)
[2018-06-30] MEDS ORDERED: NYAMYC15 GM TOP (11:48)
[2018-06-30] MEDS ORDERED: TOPROL XL50 MG PO (11:48)
[2018-06-30] MEDS ORDERED: COLACE 100 MG100 MG PO (11:48)
[2018-06-30] MEDS ORDERED: ELIQUIS5 MG PO (11:48)
[2018-06-30] MEDS ORDERED: PACERONE 200 M200 M1 PO (11:48)
[2018-06-30 11:59] VITALS: BP 143/93
[2018-06-30 12:00] VITALS: BP 122/70
== END 2018-06-30 15:38 | disposition home health service (06) | DRG 308 ==
LOC: M.ERS 21:34 → M.TBA-ER 23:23 → M.2W 23:23
PROVIDERS: Emergency Medicine; Internal Medicine Cardiovascular Disease; ADMIT Internal Medicine
DX: I48.91 Unspecified atrial fibrillation (principal); I50.33 Acute on chronic diastolic (congestive) heart failure; E44.0 Moderate protein-calorie malnutrition; I13.0 Hypertensive heart and chronic kidney disease with heart failure and stage 1 through stage 4 chronic kidney disease, or unspecified chronic kidney disease; E78.00 Pure hypercholesterolemia, unspecified; I25.10 Atherosclerotic heart disease of native coronary artery without angina pectoris; I44.2 Atrioventricular block, complete; B37.9 Candidiasis, unspecified; L89.159 Pressure ulcer of sacral region, unspecified stage; F41.9 Anxiety disorder, unspecified; K59.00 Constipation, unspecified; E11.22 Type 2 diabetes mellitus with diabetic chronic kidney disease; I95.9 Hypotension, unspecified; N18.3 Chronic kidney disease, stage 3 (moderate); I48.92 Unspecified atrial flutter; Z85.3 Personal history of malignant neoplasm of breast; Z90.710 Acquired absence of both cervix and uterus; Z95.2 Presence of prosthetic heart valve; Z95.1 Presence of aortocoronary bypass graft; Z92.3 Personal history of irradiation; Z95.0 Presence of cardiac pacemaker; Z79.82 Long term (current) use of aspirin; Z79.899 Other long term (current) drug therapy; Z68.39 Body mass index [BMI] 39.0-39.9, adult

== ENCOUNTER → 2019-04-05 | Outpatient (CLI) | payer MEDICARE, OTHER ==
[~2019-04-05] MED LIST changes: +COLACE 100 MG100 MG PO; +COREG; +ELIQUIS5 MG PO; +FLUCONAZOLE 10100 MG PO; +NYAMYC15 GM TOP; +NYSTATIN15 G3 TOP; +PACERONE 200 M200 M1 PO; +TOPROL XL50 MG PO
== END ==
LOC: M.ULTRA 08:27
DX: K80.20 Calculus of gallbladder without cholecystitis without obstruction (principal); R16.2 Hepatomegaly with splenomegaly, not elsewhere classified

== ENCOUNTER → 2019-05-06 | Day surgery (SDC) | payer MEDICARE, OTHER ==
[2019-05-01 11:19] LABS: HEMATOCRIT 40.4 % (37.0-47.0); HEMOGLOBIN 13.6 gm/dL (12.0-15.0); MCH 25.6 pg (26.0-34.0); MCHC 33.7 g/dL (28.0-37.0); MCV 75.8 fL (80.0-100.0); MPV 8.2 fl. (7.2-11.1); RBC 5.33 mil/uL (4.20-5.00); RDW-CV 15.2 % (10.5-14.5); WBC 8.9 thou/uL (4.0-11.0)
[2019-05-01 11:22] LABS: CALCIUM 9.1 mg/dL (8.5-10.1); CREATININE 1.4 mg/dL (0.6-1.3); POTASSIUM 3.8 mmol/L (3.5-5.1)
[~2019-05-06] MED LIST changes: +OXYCODONE HCL 55 MG PO
--- NOTE | ~2019-05-06 | OP ---
[address] [address] OPERATIVE REPORT Name: JD MACDONALD Room: [facility].#: [id number] Admission: 05/06/19 Attend Phys: Reynaldo Rodriguez DO Discharge: Date of : 49 Report #: [id number] THIS REPORT FOR: //name// cc: Allegra Franklin PA-C, Erin PA-C ~ THIS REPORT FOR: //name// CC: Reynaldo Franklin PA-C DICTATED BY: Donaldo Rose DO DATE OF SERVICE: 05/06/2019 PREOPERATIVE DIAGNOSIS: Symptomatic cholelithiasis. POSTOPERATIVE DIAGNOSIS: Symptomatic cholelithiasis. SURGEON: Reynaldo Rodriguez DO. CO-SURGEON: Donaldo Rose, PGY4 SUMMER ANALYST: López Carreon MS3 OPERATION PERFORMED: Laparoscopic cholecystectomy with fluorescent imaging. ANESTHESIA: General and anesthesia performed TAP block. ESTIMATED BLOOD LOSS: 30 mL. SPECIMEN: Gallbladder and contents. COMPLICATIONS: None. CONDITION: To PACU in stable condition. INDICATIONS: The patient is a 73-year-old female who presented to clinic with complaints of postprandial right upper quadrant pain. She was found to have cholelithiasis on ultrasound. Her presentation was consistent with symptomatic cholelithiasis. She was informed of the risks and benefits of laparoscopic cholecystectomy with risks including but not limited to bleeding, infection, common bile duct injury, liver injury, bowel injury, chronic diarrhea, chronic pain, hernia formation, need for reoperation. She understood all these risks and decided to proceed with surgery. [facility] [address] [place] [address] OPERATIVE REPORT Name: JD MACDONALD Room: [facility] M.R.#: [id number] Admission: 05/06/19 Attend Phys: Reynaldo Rodriguez DO Discharge: Date of : 49 Report #: [id number] DESCRIPTION OF PROCEDURE: After informed consent was obtained, the patient was brought to the operating room and placed in the supine position. SCDs were on and running. Preoperative antibiotics were delivered. General anesthesia was administered with an ET tube anesthesia and then placed bilateral transversus abdominis plane blocks. The patient was prepped and draped in the usual sterile fashion. A surgical pause was held to confirm proper patient and procedure superior to the umbilicus. An 11 blade was used to make a 2 cm incision. Dissection was carried through the subcutaneous tissue using cautery until the fascia was identified and incised with cautery and elevated with 2 Marino clamps. The peritoneum was grasped with two Kellys and incised using Metzenbaum scissors. A 0 Vic[address] was used to place a stay stitch with [id number] at the superior and inferior aspect of the incisions. Of note, there was likely an umbilical hernia inferior to the incision. This was not explored. The [address] was introduced into the peritoneum and secured with the stay sutures. The abdomen was insufflated. Camera was introduced into the abdomen. Attention was turned towards the right upper quadrant. The patient was positioned head up, right side up. A 5 mm port in the epigastrium was placed under direct visualization. The blunt grasper was used to identify the gallbladder. Two additional ports in the right upper quadrant were placed under direct visualization. The gallbladder was then elevated. There were dense omental adhesions to the body of the gallbladder. These were taken down with a combination of cautery and blunt dissection. They were taken down until Cesar's pouch was elevated and the gallbladder was retracted in a cephalad direction. Combination of cautery and blunt dissection with [place] were used to identify the cystic duct. Fluorescence NV imaging was used throughout the procedure to confirm the structures. This was used to identify the cystic duct, which was then dissected free using the [place] dissector on the lateral and medial side of the gallbladder. Once the cystic duct was clearly dissected and there were no other ductal structures visualized. Two Weck Hem-o-yolanda clips were placed proximally and 1 distally on the gallbladder. Laparoscopic scissors were used to divide the cystic duct. Gallbladder was then more easily retracted cephalad. Cesar's pouch was retracted cephalad, lateral. There was a lateral branch of the cystic artery, which was isolated and a single Weck Hem-o-yolanda clip was placed. The medial artery was similarly isolated using [place] dissector and laparoscopic right angle. A single clip was placed proximally on this and the distal portion was cauterized. The gallbladder was then carefully dissected free from the liver bed using cautery. Once completely removed from the liver bed, it was placed within an EndoCatch bag and placed aside. The liver bed was inspected. A suction remote ruby on rails developer was used to thoroughly suction and irrigate the liver bed. Cautery was used to obtain hemostasis from some small areas of bleeding from the liver bed. This was completely hemostatic. The right upper quadrant was then thoroughly irrigated and suctioned. The patient was leveled out and suctioned over the top of the liver. The abdomen was then desufflated after all trocars were removed under direct visualization. The gallbladder was removed through the umbilical incision. Previous stay sutures were elevated. Two additional [id number]-ck[id number] [address] OPERATIVE REPORT Name: JD MACDONALD Room: [facility]#: [id number] Admission: 05/06/19 Attend Phys: Reynaldo Rodriguez DO Discharge: Date of : 49 Report #: [id number] to close the fascia at the umbilicus. This wound was closed in layered fashion using 3-0 Vicryl. The remainders of the skin incisions were closed using 4-0 Monocryl. Wounds were then cleansed and dressed with Mastisol, Steri-Strips, Tegaderms. All counts were correct. The patient was emerged from anesthesia and transferred to the PACU in stable condition. By: [id number] Rodriguez DO /nt
--- NOTE | 2019-05-08 15:08 | PATH ---
[facility] [address] [place] [address] PATHOLOGY RPT PROCEDURE Name: JD CORDOBA Room: [facility].R.#: [id number] Admission: 05/06/19 Date of : 49 Discharge: Report #: [id number] Path Case #: [id number] [facility] Accession Number: [id number] . 01 Material submitted: . gallbladder - GALLBLADDER . 01 Clinical history: . Calculus of gallbladder without cholecystitis without obstruction . 02 Diagnosis: Gallbladder: - Chronic cholecystitis and cholelithiasis. (EDITA:frank; 05/08/2019) [facility] 05/08/2019 1115 Local . 02 Electronically signed: . Sukmuar Padilla MD, Pathologist NPI- [id number] . 01 Gross description: . The specimen is received in formalin, labeled "Jd Cordoba, gallbladder". Received is an intact gallbladder measuring 12.5 x 3.7 x 2.9 cm in greatest dimensions displaying a dusky naranjo-collins serosal surface. Opening the specimen reveals a velvety, bile-stained mucosa with a gallbladder wall thickness of 0.1 cm. Calculi are present displaying a light brown and smooth appearance, and no masses or lesions are noted grossly. Tetryl Screen Operator sections, to include the proximal margin, are submitted in cassette A1. (CAA; 05/07/2019) [facility] 05/07/2019 1145 Local . 02 Pathologist provided ICD-10: K80.10 . 02 CPT . 841922 Specimen Comment: A courtesy copy of this report has been sent to [phone] Specimen Comment: [phone] Specimen Comment: Report sent to / DR ARNOLD Performed at: [address] [id number] MD Fritz Aguirre MD Phone: [phone] Performed at: 02 [facility] [address] [place], [place] [id number] [address] [address] PATHOLOGY RPT PROCEDURE Name: JD CORDOBA Room: [facility] Rogelio#: [id number] Admission: 05/06/19 Date of : 49 Discharge: Report #: [id number] Path Case #: [id number] MD Sukumar Padilla MD Phone: [phone]
--- NOTE | 2019-05-17 14:53 | EKG ---
[place] [address] ELECTROCARDIOGRAM REPORT Name: MACDONALDJD MARC Room: [facility]#: [id number] Admission: 05/06/19 Attend Phys: Reynaldo Rodriguez DO Discharge: Date of : 49 Date of Service: 05/01/19 1112 Report #: [id number] THIS REPORT FOR: //name// [facility] Test Date: 2019-05-01 Test Time: 11:12:14 Pat Name: JD MACDONALD Department: Room: Gender: F Fine Arts Teacher: : 1945 Requested By: Reynaldo Rodriguez Order Number: [id number] Reading MD: Aaron Hernandez Measurements Intervals [place] Rate: 85 P: 17 RI: 194 QRS: -15 QRSD: 113 T: 109 QT: 399 QTc: 475 Interpretive Statements Sinus rhythm LVH with IVCD and secondary repol abnrm Compared to ECG 06/27/2018 05:15:55 Left ventricular hypertrophy now present Early repolarization now present Ventricular-paced complex(es) or rhythm no longer present Atrial-sensed ventricular-paced complex(es) or rhythm no longer present Electronically Signed On 05-02-2019 11:11:43 PIGEON FANCIER by Aaron Hernandez [email or web address] <ELECTRONICALLY SIGNED> By: Aaron Hernandez MD, FACC 05/02/19 1111 1112 1112 Aaron Hernandez MD, FACC /EPI
== END | disposition home or self-care (01) ==
LOC: M.SUR 06:12
PROVIDERS: Surgery
DX: K80.20 Calculus of gallbladder without cholecystitis without obstruction (principal)

== ENCOUNTER → 2020-05-13 | Outpatient (CLI) | payer MEDICARE, OTHER | LOC: M.ULTRA 04-27 11:00 | PROVIDERS: ATTEND Otolaryngology | DX: E04.1 Nontoxic single thyroid nodule (principal) ==

== ENCOUNTER → 2020-06-04 | Outpatient (CLI) | payer MEDICARE, OTHER ==
--- NOTE | 2020-06-23 08:43 | SLEEP ---
[address] [address] SLEEP STUDY REPORT Name: JD MACDONALD Room: [facility].#: [id number] Admission: 06/04/20 Attend Phys: GALLO Munoz Discharge: Date of : 49 Report #: [id number] THIS REPORT FOR: cc: Stephanie Andres Mallory PA Pervez, Adeel MD ~ This study has been reviewed in its entirety by a board certified sleep specialist DATE OF SERVICE: 06/04/2020 SLEEP STUDY INTERPRETATION: Total duration of the study is 450 minutes. During this time duration, she was asleep for 257 minutes with an overall sleep efficiency of 57%. Sleep onset initially occurred 10 minutes after lying down in bed. REM onset was delayed occurring 150 minutes after sleep onset. N1 sleep duration was 26%, N2 duration was 49%, N3 duration was 7% and REM duration was 17%. This is a split night sleep study. During the initial part of the sleep study, the patient was not on positive airway pressure therapy for 127 minutes, this included 51 minutes of sleep time, all of which was non-REM sleep. During this time period, the patient had multiple sleep-related respiratory events. These included 41 hypopneas in addition to 3 obstructive apneas and 6 respiratory effort-related arousals with an overall apnea-hypopnea index of 51.8. Body position data indicates the patient was observed asleep in the supine position for 10.5 minutes. For the rest of the time, the patient was on the left side. Supine apnea/hypopnea index is much higher at 91.4. Mean heart rate at this time was 75. There were no periodic limb movements recorded. The arousal index, however, was markedly elevated to 76.5 and there was marked sleep fragmentation observed. We also did observe multiple desaturations. O2 saturation, however, mostly remained at or above 90%, dropping below 90% for 4 minutes, out of which 0.7 minutes were with an O2 saturation less than 88%. The patient was subsequently placed on positive airway pressure therapy and was observed in positive airway pressure therapy for 322 minutes, this included 206 minutes of sleep time, which in turn included 44 minutes of REM sleep. The patient's mean heart rate was now 69. Periodic limb movement index of 37. Most limb movements, however, were not associated with arousals. Review of the positive airway pressure titration indicates the patient was titrated beginning with a CPAP pressure of 6 cm of water, [place] [address] SLEEP STUDY REPORT Name: JD MACDONALD Room: [facility]#: [id number] Admission: 06/04/20 Attend Phys: GALLO Munoz Discharge: Date of : 49 Report #: [id number] it to 10 cm of water. The patient had a favorable response to CPAP therapy and with the administration of a CPAP of 9 cm of water, there were only occasional central apneas and hypopneas being recorded. We in fact recorded sustained REM supine sleep on this CPAP pressure. On account of the fact that the patient was having some central apneas which were occurring on a CPAP pressure of 9 cm of water, close to sleep-wake transition, the CPAP pressure subsequently was increased to 10 cm of water and the patient subsequently was also placed on various BiPAP pressures. The patient was now; however, frequently awake and therefore adequate evaluation on BiPAP was not possible. IMPRESSION: 1. Obstructive sleep apnea with an apnea-hypopnea index of 51.8 with mild nocturnal hypoxemia as described above. 2. There is positional variation. Sleep-related respiratory events are more common when the patient is lying supine. Supine apnea/hypopnea index is higher at 91.4. 3. There is marked improvement noted with the administration of a CPAP of 9 cm of water. O2 saturation is also adequately maintained with this therapy. We did record a short duration of REM supine sleep with a CPAP pressure of 9 cm of water placed. Complete correction of the patient's sleep-disordered respirations, however, does not occur with this. The patient was also placed on BiPAP during the sleep study; however, she is frequently awake on BiPAP and therefore adequate evaluation on BiPAP was not possible during the sleep study. RECOMMENDATIONS: 1. Recommend placing the patient on a CPAP of 9 cm of water with heated humidity and mask per patient's preference while asleep during this sleep study and F3P ESON mask, size small was used. 2. As the patient's respirations appear to be worse when she is lying supine, recommend instructing the patient to avoid lying supine, recommend that she sleeps on the sides as much as possible. 3. As above, there is marked improvement with the administration of a CPAP of 9 cm of water, but not complete control of her sleep-disordered respirations and therefore if despite this therapy the patient remains symptomatic, then I would recommend in that case scheduling another sleep study in the next few months for a repeat positive airway pressure titration. If we do another sleep study later on, then it appears unlikely to me that increasing the CPAP pressure above 9 cm of water will improve her respirations further. In that case, I would be inclined to have a low threshold of switching her over to a BiPAP. 4. If clinically appropriate, then recommend weight loss, considering recommend avoiding driving or other activities requiring vigilance if drowsy. [facility] [address] [place] [address] SLEEP STUDY REPORT Name: JD MACDONALD Room: [facility]#: [id number] Admission: 06/04/20 Attend Phys: GALLO Munoz Discharge: Date of : 49 Report #: [id number] This entire sleep study was reviewed by a board certified sleep physician. <ELECTRONICALLY SIGNED> By: Reagan Shannon MD 06/23/20 0843 1859 1933Adusty Shannon MD /nt
== END ==
LOC: M.SLEEPLAB 20:55
PROVIDERS: ATTEND Registered Nurse
DX: G47.33 Obstructive sleep apnea (adult) (pediatric) (principal)

== ENCOUNTER → 2020-09-02 | Outpatient (CLI) | payer MEDICARE, OTHER | LOC: M.RAD 14:53 | PROVIDERS: ATTEND Nurse Practitioner | DX: J98.4 Other disorders of lung (principal); I70.0 Atherosclerosis of aorta; R06.02 Shortness of breath; Z98.890 Other specified postprocedural states ==

== ENCOUNTER → 2020-11-12 | Outpatient (CLI) | payer MEDICARE, OTHER ==
[~2020-11-12] MED LIST changes: +COZAAR 25 MG TA25 M2 PO; +Vitamin D3 PO
== END ==
LOC: M.ULTRA 10:33
PROVIDERS: ATTEND Otolaryngology
DX: E04.2 Nontoxic multinodular goiter (principal)

== ENCOUNTER → 2020-11-27 | Outpatient (CLI) | payer MEDICARE, OTHER ==
--- NOTE | 2020-12-03 10:07 | PATH ---
[address] [address] PATHOLOGY RPT PROCEDURE Name: JD MACDONALD Room: [facility].#: [id number] Admission: 11/27/20 Date of : 49 Discharge: Report #: [id number] Path Case #: [id number] Note [facility] Accession Number: [id number] TESTS RESULT FLAG UNITS REF RANGE LAB Clinician Provided Cytology Information No. of containers..01 Other (Miscellaneous) Source: LEFT MID THYROID DIAGNOSIS: 02 LEFT MID THYROID (1.7 X 1.6 X 1.5 CM), IMAGE-GUIDED FNA: NEGATIVE FOR MALIGNANT CELLS. BETHESDA CATEGORY II. SPECIMEN CONSISTS OF BENIGN FOLLICULAR CELLS, HEMOSIDERIN-LADEN MACROPHAGES, COLLOID, AND BLOOD. THIS PATTERN IS CONSISTENT WITH A BENIGN FOLLICULAR NODULE. Pathologist ICD10: 02 E04.1 Signed out by: 02 Sukumar Padilla MD, Pathologist NPI- [id number] Performed by: Morro Aguila, Director Business Travel ([facility]) Gross description: 01 15ML, CLOUDY, RED /LCS 12/01/2020 1701 Local FLAG LEGEND: L-Low Normal,H-High Normal,LL-Alert Low,HH-Alert High <-Panic Low,>-Panic High,A-Abnormal,AA-Critical Abnormal Performed at: [address] [place] [address] Hank Rao MD, [address] [place] [address] [address] [place] [address] Sukumar Padilla MD, Specimen Comment: [id number] Performed at: [address], [place], [place] [id number] MD Hank Rao MD Phone: [phone]
--- NOTE | 2020-12-03 10:07 | PATH ---
[address] [address] PATHOLOGY RPT PROCEDURE Name: JD MACDONALD Room: [facility].#: [id number] Admission: 11/27/20 Date of : 49 Discharge: Report #: [id number] Path Case #: [id number] Note [facility] Accession Number: [id number] TESTS RESULT FLAG UNITS REF RANGE LAB Clinician Provided Cytology Information No. of containers..01 Other (Miscellaneous) Source: 01 RIGHT SUP THYROID DIAGNOSIS: 02 RIGHT SUP THYROID (1.4 X 1.3 X 1 CM), IMAGE-GUIDED FNA: NEGATIVE FOR MALIGNANT CELLS. BETHESDA CATEGORY II. SPECIMEN CONSISTS OF BENIGN FOLLICULAR CELLS, HEMOSIDERIN-LADEN MACROPHAGES, COLLOID, AND BLOOD. THIS PATTERN IS CONSISTENT WITH A BENIGN FOLLICULAR NODULE. Pathologist ICD10: 02 E04.1 Signed out by: 02 Sukumar Padilla MD, Pathologist NPI- [id number] Performed by: Morro Aguila, Children'S Librarian ([facility]) Gross description: 01 10ML, CLEAR, RED /LCS 12/01/2020 1706 Local FLAG LEGEND: L-Low Normal,H-High Normal,LL-Alert Low,HH-Alert High <-Panic Low,>-Panic High,A-Abnormal,AA-Critical Abnormal Performed at: [address] [place] [address] Hank Rao MD, [address] [place] [address] [address] [place] [address] Sukumar Padilla MD, Specimen Comment: [id number] Performed at: [address], [place], [place] [id number] MD Hank Rao MD Phone: [phone]
--- NOTE | 2020-12-03 10:07 | PATH ---
[address] [address] PATHOLOGY RPT PROCEDURE Name: JD MACDONALD Room: [facility].#: [id number] Admission: 11/27/20 Date of : 49 Discharge: Report #: [id number] Path Case #: [id number] Note [facility] Accession Number: [id number] TESTS RESULT FLAG UNITS REF RANGE LAB Clinician Provided Cytology Information No. of containers..01 Other (Miscellaneous) Source: 01 LEFT INF THYROID DIAGNOSIS: 02 LEFT INF THYROID NODULE (1.2 X 0.72 X 0.58 CM), IMAGE-GUIDED FNA: NEGATIVE FOR MALIGNANT CELLS. BETHESDA CATEGORY II. SPECIMEN CONSISTS OF BENIGN FOLLICULAR CELLS, HEMOSIDERIN-LADEN MACROPHAGES, COLLOID, AND BLOOD. THIS PATTERN IS CONSISTENT WITH A BENIGN FOLLICULAR NODULE. Pathologist ICD10: 02 E04.1 Signed out by: 02 Sukumar Padilla MD, Pathologist NPI- [id number] Performed by: Morro Aguila, Exploration Driller ([facility]) Gross description: 01 15ML, CLEAR, PINK /LCS 12/01/2020 1704 Local FLAG LEGEND: L-Low Normal,H-High Normal,LL-Alert Low,HH-Alert High <-Panic Low,>-Panic High,A-Abnormal,AA-Critical Abnormal Performed at: [address] [place] [address] Hank Rao MD, [address] [place] [address] [address] [place] [address] Sukumar Padilla MD, Specimen Comment: [id number] Performed at: [address], [place], [place] [id number] MD Hank Rao MD Phone: [phone]
== END | disposition home or self-care (01) ==
LOC: M.ULTRA 07:55
PROVIDERS: ATTEND Otolaryngology
DX: E04.1 Nontoxic single thyroid nodule (principal); I25.10 Atherosclerotic heart disease of native coronary artery without angina pectoris; E11.9 Type 2 diabetes mellitus without complications; G47.33 Obstructive sleep apnea (adult) (pediatric); Z98.890 Other specified postprocedural states; Z79.899 Other long term (current) drug therapy; Z79.01 Long term (current) use of anticoagulants; Z95.2 Presence of prosthetic heart valve